=== PATIENT | male | born 1975 | race Caucasian/White ===

== ENCOUNTER 2023-10-31 00:31 | Emergency (ER) | payer OTHER ==
[2023-10-31] MEDS ORDERED: HYDROcodone/Acetaminophen 10/325 mg Tablet ONE (00:51)
== END 2023-10-31 06:47 ==
LOC: NAV ERS 00:31 → EEVIPCON 00:31 → NAV ERS 06:47
DX: M25.562 Pain in left knee (principal); I10 Essential (primary) hypertension; K21.9 Gastro-esophageal reflux disease without esophagitis; E78.5 Hyperlipidemia, unspecified; X50.0XXA Overexertion from strenuous movement or load, initial encounter; Y93.89 Activity, other specified; Z87.891 Personal history of nicotine dependence; Z79.82 Long term (current) use of aspirin; Z79.84 Long term (current) use of oral hypoglycemic drugs; Z79.899 Other long term (current) drug therapy